=== PATIENT | male | born 1990 | race Hispanic/Latino ===

== ENCOUNTER 2018-06-02 13:11 | Emergency (ER) | payer SELFPAY ==
[~2018-06-02] VITALS: Ht 177.8 cm; Wt 117.9 kg
[2018-06-02] MEDS ORDERED: TETANUS/DIPHTHERIA TOX ADULT 0.5 ML SYR IM ONE (13:30)
--- NOTE | 2018-06-02 13:52 | Diagnostic Imaging Report ---
Exam: Left foot radiographs-2 views Clinical History: Stepped on nail, query foreign body. Comparison: None. Findings: No evidence of acute fracture, malalignment, or soft tissue abnormality. No evidence of radiopaque foreign body. Apparent punctate hyperdensities overlying the distal large toe dorsal soft tissues on lateral radiograph likely reflect detector elements rather than foreign body. Impression: No acute osseous abnormality. No specific evidence of radiopaque foreign body. Apparent punctate hyperdensities overlying the distal large toe dorsal soft tissue likely reflect artifact rather than foreign body. This can be correlated on clinical exam. Signed by: Dr. Randall Darnell MD on 06/02/2018 1:49 PM
[2018-06-02 14:18] VITALS: BP 119/80
== END 2018-06-02 14:36 | disposition home or self-care (01) ==
LOC: ER 13:11
DX: S91.332A Puncture wound without foreign body, left foot, initial encounter (principal); W26.8XXA Contact with other sharp object(s), not elsewhere classified, initial encounter; W45.8XXA Other foreign body or object entering through skin, initial encounter; Y93.01 Activity, walking, marching and hiking; Y92.008 Other place in unspecified non-institutional (private) residence as the place of occurrence of the external cause; E78.5 Hyperlipidemia, unspecified
CPT/HCPCS: 90471; 90714; 99283

== ENCOUNTER 2021-02-25 09:30 | Emergency (ER) | payer SELFPAY ==
[~2021-02-25] VITALS: Ht 177.8 cm; Wt 127.0 kg
== END 2021-02-25 12:19 | disposition home or self-care (01) ==
LOC: ER 10:30
DX: R00.2 Palpitations (principal); I10 Essential (primary) hypertension
CPT/HCPCS: 71045; 93005; 99283

== ENCOUNTER 2021-02-28 01:32 | Emergency (ER) | payer SELFPAY ==
[~2021-02-28] VITALS: Ht 177.8 cm; Wt 127.0 kg
== END 2021-02-28 01:55 | disposition home or self-care (01) ==
LOC: ER 01:35
DX: F41.9 Anxiety disorder, unspecified (principal); R94.31 Abnormal electrocardiogram [ECG] [EKG]; I10 Essential (primary) hypertension; E78.5 Hyperlipidemia, unspecified; E78.00 Pure hypercholesterolemia, unspecified
CPT/HCPCS: 93005; 99282

== ENCOUNTER 2022-07-15 22:35 | Emergency (ER) | payer OTHER ==
[~2022-07-15] VITALS: Ht 177.8 cm; Wt 127.0 kg
[2022-07-15 23:12] LABS: BASOPHILS # (AUTO) 0.1 (0.0-0.1); BASOPHILS % 1.1 % (0.0-1.0); EOSINOPHILS # (AUTO) 0.3 (0.0-0.4); EOSINOPHILS % 2.5 % (0.0-6.0); HEMATOCRIT 51.1 % (38.2-49.6); HEMOGLOBIN 16.5 g/dL (14.0-18.0); LYMPHOCYTES # (AUTO) 3.8 (1.0-3.2); MEAN CORPUSCULAR HEMOGLOBIN 29.4 pg (28-32); MEAN CORPUSCULAR HGB CONC 32.3 g/dL (31-35); MEAN CORPUSCULAR VOLUME 91.1 fL (81-99); MONOCYTES # (AUTO) 0.7 (0.2-0.8); MONOCYTES % 6.4 % (4.4-11.3); NEUTROPHILS # (AUTO) 5.9 (2.1-6.9); NEUTROPHILS % 54.7 % (38.7-80.0); PLATELET COUNT 287 x10e3/uL (140-360); RED BLOOD COUNT 5.61 x10e6/uL (4.3-5.7)
[2022-07-15 23:14] LABS: AMPHETAMINES SCREEN,URINE NEGATIVE (NEGATIVE); BENZODIAZEPINES SCREEN,URINE NEGATIVE (NEGATIVE); PHENCYCLIDINE SCREEN,URINE NEGATIVE (NEGATIVE)
[2022-07-15 23:28] LABS: ALANINE AMINOTRANSFERASE 29 IU/L (0-55); ALBUMIN 4.2 g/dL (3.5-5.0); ALBUMIN/GLOBULIN RATIO 1.4 (0.8-2.0); ALKALINE PHOSPHATASE 70 IU/L (40-150); ANION GAP 16.2 mmol/L (8-16); BLOOD UREA NITROGEN 12 mg/dL (7-26); BUN/CREATININE RATIO 15 (6-25); CALCIUM 9.4 mg/dL (8.4-10.2); CARBON DIOXIDE 21 mmol/L (22-29); CHLORIDE 111 mmol/L (98-107); CREATINE KINASE 133 IU/L (30-200); CREATININE, SERUM 0.82 mg/dL (0.72-1.25); GLUCOSE 83 mg/dL (74-118); POTASSIUM 4.2 mmol/L (3.5-5.1); SODIUM 144 mmol/L (136-145)
[2022-07-16 00:27] VITALS: BP 123/89
== END 2022-07-16 00:32 | disposition home or self-care (01) ==
LOC: ER 22:40
DX: R00.2 Palpitations (principal); I10 Essential (primary) hypertension; F41.9 Anxiety disorder, unspecified
CPT/HCPCS: 36415; 71045; 80053; 80307; 82550; 82553; 84484; 85025; 93005; 99284